=== PATIENT | female | born 1980 | race Caucasian/White ===

== ENCOUNTER 2021-09-16 00:06 | Emergency (ER) | payer SELFPAY ==
[~2021-09-16] VITALS: Ht 162.6 cm; Wt 90.7 kg
[2021-09-16 03:00] VITALS: BP 139/90
[2021-09-16] MEDS ORDERED: traMADol HCL 50 MG TAB PO ONE (03:15)
== END 2021-09-16 05:39 | disposition home or self-care (01) ==
LOC: ER 00:06
DX: S72.91XD Unspecified fracture of right femur, subsequent encounter for closed fracture with routine healing (principal); X58.XXXD Exposure to other specified factors, subsequent encounter
CPT/HCPCS: 73502